=== PATIENT | female | born 1940 | race Two or more races ===

== ENCOUNTER 2017-11-22 11:42 | Outpatient (CLI) | payer OTHER | END 2017-11-22 12:04 | disposition home or self-care (01) | LOC: MAMO-SONO 11:42 | DX: Z12.31 Encounter for screening mammogram for malignant neoplasm of breast (principal); N60.19 Diffuse cystic mastopathy of unspecified breast ==

== ENCOUNTER 2017-11-22 14:07 | Outpatient (CLI) | payer OTHER | END 2017-11-22 15:00 | disposition home or self-care (01) | LOC: NUCLEAR 14:07 | DX: M81.0 Age-related osteoporosis without current pathological fracture (principal) ==

== ENCOUNTER 2018-03-05 12:52 | Outpatient (CLI) | payer OTHER | END 2018-03-05 13:05 | disposition home or self-care (01) | LOC: MRI 12:52 | DX: N39.0 Urinary tract infection, site not specified (principal); N36.1 Urethral diverticulum | CPT/HCPCS: 72195 ==

== ENCOUNTER 2019-04-11 10:41 | Outpatient (CLI) | payer OTHER | END 2019-04-11 10:53 | disposition home or self-care (01) | LOC: MAMO-SONO 10:41 | DX: N60.11 Diffuse cystic mastopathy of right breast (principal); N60.12 Diffuse cystic mastopathy of left breast ==

== ENCOUNTER 2020-09-09 10:22 | Outpatient (CLI) | payer OTHER | END 2020-09-09 10:24 | disposition home or self-care (01) | LOC: NUCLEAR 10:22 | PROVIDERS: ATTEND Specialist | DX: M85.80 Other specified disorders of bone density and structure, unspecified site (principal); M81.0 Age-related osteoporosis without current pathological fracture ==

== ENCOUNTER → 2020-09-09 | Outpatient (CLI) | payer OTHER | END | disposition home or self-care (01) | LOC: MAMO-SONO 12:15 | PROVIDERS: ATTEND Specialist | DX: Z12.31 Encounter for screening mammogram for malignant neoplasm of breast (principal); M85.88 Other specified disorders of bone density and structure, other site; N64.59 Other signs and symptoms in breast ==

== ENCOUNTER 2021-08-05 08:00 | Outpatient (CLI) | payer OTHER | END 2021-08-05 08:30 | disposition home or self-care (01) | LOC: PPH VACUNA 08:00 | PROVIDERS: ATTEND Emergency Medicine Pediatric Emergency Medicine | DX: Z23 Encounter for immunization (principal) ==

== ENCOUNTER 2022-11-09 09:28 | Outpatient (CLI) | payer OTHER | END 2022-11-09 09:48 | disposition home or self-care (01) | LOC: MAMO-SONO 09:28 | PROVIDERS: ATTEND Specialist | DX: Z12.31 Encounter for screening mammogram for malignant neoplasm of breast (principal) ==

== ENCOUNTER 2022-11-09 13:29 | Outpatient (CLI) | payer OTHER | END 2022-11-09 13:30 | disposition home or self-care (01) | LOC: NUCLEAR 13:29 | PROVIDERS: ATTEND Specialist | DX: M85.80 Other specified disorders of bone density and structure, unspecified site (principal) ==

== ENCOUNTER 2023-06-03 19:08 | Emergency (ER) | payer OTHER ==
[~2023-06-03] VITALS: Ht 167.6 cm; Wt 69.4 kg
== END 2023-06-03 23:23 | disposition home or self-care (01) ==
LOC: ER 19:08
DX: S09.8XXA Other specified injuries of head, initial encounter (principal); S09.93XA Unspecified injury of face, initial encounter; W19.XXXA Unspecified fall, initial encounter; Y93.89 Activity, other specified; Y92.89 Other specified places as the place of occurrence of the external cause; Y99.8 Other external cause status; Z88.0 Allergy status to penicillin; Z88.6 Allergy status to analgesic agent

== ENCOUNTER → 2023-07-10 | Emergency (ER) | payer OTHER ==
[~2023-07-10] VITALS: Ht 152.4 cm; Wt 70.3 kg
[2023-07-10 06:27] LABS: HEMATOCRIT 38.5 % (36.0-45.00); HEMOGLOBIN 12.4 g/dL (12.0-15.00); MEAN CELL VOLUME 94.6 fL (80.00-100.00); MEAN CORPUSCULAR HEMOGLOBIN 30.5 pg (27.00-32.0); MEAN CORPUSCULAR HGB CONC 32.2 g/dl (32.0-36.0); PLATELET COUNT 220 K/uL (150-450); RED BLOOD COUNT 4.07 M/uL (4.00-6.00); RED CELL DISTRIBUTION WIDTH 14.2 % (11.5-14.5)
[2023-07-10 06:38] LABS: INR 0.98; PARTIAL THROMBOPLASTIN TIME 27.1 SECONDS (22.0-34.0); PROTHROMBIN TIME 10.3 SECONDS (9.0-11.5)
[2023-07-10 06:51] LABS: CALCIUM 9.8 mg/dL (8.5-10.1); CREATININE SERUM 0.75 mg/dL (0.55-1.02); GFR 73.98; POTASSIUM 3.37 mEq/L (3.5-5.1)
== END | disposition designated cancer center or children's hospital (05) ==
LOC: ER 02:58
PROVIDERS: General Practice
DX: S00.81XA Abrasion of other part of head, initial encounter (principal); W19.XXXA Unspecified fall, initial encounter; Y93.89 Activity, other specified; Y92.89 Other specified places as the place of occurrence of the external cause; Y99.8 Other external cause status; M25.512 Pain in left shoulder; Z20.822 Contact with and (suspected) exposure to COVID-19; Z88.0 Allergy status to penicillin; Z88.6 Allergy status to analgesic agent

== ENCOUNTER 2023-10-09 09:46 | Outpatient (CLI) | payer OTHER | END 2023-10-09 09:52 | disposition home or self-care (01) | LOC: SONOGRAMA 09:46 | PROVIDERS: ATTEND Pathology Anatomic Pathology & Clinical Pathology | DX: D34 Benign neoplasm of thyroid gland (principal); E07.89 Other specified disorders of thyroid; E04.1 Nontoxic single thyroid nodule ==

== ENCOUNTER 2024-03-12 12:46 | Outpatient (CLI) | payer OTHER | END 2024-03-12 12:53 | disposition home or self-care (01) | LOC: NUCLEAR 12:46 | PROVIDERS: ATTEND Internal Medicine | DX: M81.0 Age-related osteoporosis without current pathological fracture (principal) ==

== ENCOUNTER 2024-03-12 12:58 | Outpatient (CLI) | payer OTHER | END 2024-03-12 13:09 | disposition home or self-care (01) | LOC: MAMO-SONO 12:58 | PROVIDERS: ATTEND Specialist | DX: Z12.31 Encounter for screening mammogram for malignant neoplasm of breast (principal) ==

== ENCOUNTER 2025-05-27 12:08 | Outpatient (CLI) | payer OTHER | END 2025-05-27 12:13 | disposition home or self-care (01) | LOC: MAMO-SONO 12:08 | PROVIDERS: ATTEND Obstetrics & Gynecology | DX: Z12.31 Encounter for screening mammogram for malignant neoplasm of breast (principal) ==